=== PATIENT | female | born 1945 | race Two or more races ===

== ENCOUNTER 2024-12-08 05:30 | Day surgery (SDC) | payer OTHER ==
[~2024-12-08 05:30] MED LIST: HYDROCHLOROTHIA25 MG PO; ISOSORBIDE DINI30 MG PO; LEVO-T50 MCG PO; NITROGLYCERIN0.4 MG SL; NORVASC2.5 MG PO; TERAZOSIN HCL2 M1 PO; TOPROL XL25 M1 PO
[2024-12-08] MEDS ORDERED: CEFAZOLIN SODIUM 1,000 MG VIAL ONE ×2 (07:01→07:22)
[2024-12-08] MEDS ORDERED: GENTAMICIN SULFATE 40 MG/ML VIAL ONE (07:21)
[2024-12-08] MEDS ORDERED: CHLORHEXIDINE GLUCONATE 120 ML BOTTLE TOP ONE (07:21)
[2024-12-08] MEDS ORDERED: LIDOCAINE HCL 1%/EPINEPHRINE 20ML VIAL IJ ONE (07:22)
[2024-12-08] MEDS ORDERED: MACROBID 100 M100 MG PO (10:06)
== END 2024-12-08 12:00 | disposition home or self-care (01) ==
LOC: CIR.AMB 05:30
PROVIDERS: ATTEND Obstetrics & Gynecology Gynecology
DX: N81.11 Cystocele, midline (principal); Z88.6 Allergy status to analgesic agent